=== PATIENT | female | born 1990 | race Caucasian/White ===

== ENCOUNTER → 2024-07-08 | Outpatient (BNVA) | payer BC, SELFPAY | END | disposition home or self-care (01) | PROVIDERS: PCP Internal Medicine; Referring Provider Internal Medicine; Visit Provider Urology | DX: G89.4 Chronic pain syndrome (principal); R39.198 Other difficulties with micturition; Z87.440 Personal history of urinary (tract) infections; F41.9 Anxiety disorder, unspecified; F32.A Depression, unspecified; E66.9 Obesity, unspecified; Z68.31 Body mass index [BMI] 31.0-31.9, adult | CPT/HCPCS: 81003; 99202; G0463 ==

== ENCOUNTER 2024-07-28 06:25 | Day surgery (SDC) | payer BC, SELFPAY ==
[2024-07-27 09:33] VITALS: BMI 31.1
--- NOTE | 2024-07-27 09:59 | EKG_ITS ---
[facility] Test Date: 2024-07-27 Pat Name: EUSEBIO JUAREZ Department: Room: - Gender: Female Route Specialist: HORTENCIA : 1990 Requested By: Christophe Armas Order Number: [id number] Reading MD: Christophe Armas Measurements Intervals [place] Rate: 67 P: 51 MD: 169 QRS: 49 QRSD: 96 T: 33 QT: 390 QTc: 414 Interpretive Statements SINUS RHYTHM WITH SINUS ARRHYTHMIA No previous ECG available for comparison /store/S0/[id number].pdf
[2024-07-27 10:46] LABS: HCG Qualitative,Urine Negative
[2024-07-27 10:54] LABS: Alanine Aminotransferase 21 U/L (10-49); Albumin, Serum 4.3 gm/dL (3.5-5.0); Albumin/Globulin Ratio 1.7 (1.2-2.2); Alkaline Phosphatase 84 U/L (46-116); Anion Gap 9 (7-16); Aspartate Amino Transferase 20 U/L (0-34); BUN/Creatinine Ratio 11 Ratio (12-20); Bilirubin,Total 0.5 mg/dL (0.3-1.2); Blood Urea Nitrogen 9 mg/dL (9-23); Calcium 8.4 mg/dL (8.3-10.6); Calcium (Corrected) 8.4 mg/dL (8.5-10.1); Carbon Dioxide 26.3 mMol/L (20.0-31.0); Chloride 106 mMol/L (98-107); Creatinine (Component) 0.8 mg/dL (0.6-1.3); Estimated Creatinine Clearance 109.4 mL/min (>60); Globulin 2.6 gm/dL (2.3-3.5); Glucose 95 mg/dL (74-106); Osmolality,Calculated 279 (275-295); Potassium 3.6 mMol/L (3.4-5.1); Sodium 141 mMol/L (136-145); Total Protein 6.9 gm/dL (5.7-8.2); eGFR > 60 See Note
--- NOTE | 2024-07-27 14:18 | SUR.PREOP ---
Hystory of syncopy reviewed with Dr Armas. 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
[2024-07-28] VITALS (8 sets, daily range): BP systolic 92–123; BP diastolic 45–77; PULSE 80–118; RESP 12–20; TEMP 36.4–36.7; O2SAT 97–100; BMI 31.5
--- NOTE | 2024-07-28 07:25 | CHAP ---
Patient was with family member. I gave some words of encouragement and prayer.
[2024-07-28 07:54] LABS: COVID-19 Antigen (In-House) Negative (Negative)
[2024-07-28] MEDS: SCOPOLAMINE 1 MG TDSY TOP (08:09)
[2024-07-28] MEDS: RINGERS LACTATED 1000 ML 1,000 ML 20 ML IV (08:12)
--- NOTE | 2024-07-28 09:47 | SUR.PHASEI ---
0947: Pt. AAOx4, vitals stable, breathing unlabored, no complaint of pain or nausea, duran catheter in place, draining clear yellow urine, report received from Eliecer RAYMUNDO, MD Stephens, and Shay AVILES.
--- NOTE | 2024-07-28 09:51 | ESOP_ITS ---
Date of Procedure 07/28/24 Pre Op Diagnosis Chronic pelvic pain syndrome, difficulty in urinating Post Op Diagnosis Same plus urethral stenosis plus bladder neck polyps, changes of cystitis biopsy was obtained fulguration is carried out Procedure Cystoscopic examination urethral dilation Thiells dilation for diagnostic and therapeutic purposes biopsy and fulguration Findings Urethral stenosis, changes of cystitis pending pathology, bladder neck polyps Procedure Description Indication for procedure this is a 34-year-old female she has multiple medical problem. She presented with the chronic pelvic pain syndrome difficulty in urinating she was recommended above procedure procedure and complications were discussed with the patient in great detail informed consent is obtained Patient was brought to the operating room in satisfactory condition after appropriate premedication she was appropriately identified by surgeon and operating room staff site scope and indications of the procedure were reconfirmed with the patient The patient received 160 mg Gentamicin IM pre-op prophylaxis. Informed consent was obtained for the procedure. General anesthesia was given uneventfully patient was the position in the dorsolithotomy position the patient was prepped in a sterile manner. Local anesthetic was placed in the urethra. Cystoscopy was then performed. The urethra had bladder neck polyp. Examination of the bladder revealed no evidence of cancerous lesions, papillary or polyp type, lesions or stones, next bladder was filled with 350 cc of water drained cystoscope was done again there were changes of cystitis biopsy was obtained fulguration was carried out to rule out interstitial cystitis. Both ureters were putting out clear urine. The urethra had mid urethral stenosis and the urethra was dilated up to 30Fr with dilators. The bladder was completely drained and the scope was removed. The patient tolerated the procedure well. Post-op instructions were given. The patient is to call the office should any problems occur. Patient disposition follow-up appointment in urology office is given Anesthesia GETA Pathology / specimen Other (Bladder biopsy) Estimated Blood Loss 0.5 Condition Stable Disposition PACU Surgeon Melanie Black MD Surgical Staff Operation Date: 07/28/24 08:30 Case Staff Anesthesiologist: Hayden Stephens
--- NOTE | 2024-07-28 10:47 | SUR.PHASEII ---
1047: Pt. AAOx4, vitals stable, breathing unlabored, no complaint of pain or nausea, duran catheter removed, pt. voided in restroom after duran catheter removal, pt. tolerated sips of water well, pt. ambulated to wheelchair with steady gait and no assist, no complications. Gave discharge instructions to the pt. and her ride, both verbalized understanding and had no further questions. Pt. left with all personal belongings.
== END 2024-07-28 10:47 | disposition home or self-care (01) ==
PROVIDERS: Anesthesiology; PCP Internal Medicine; Referring Provider Urology; Visit Provider Urology
PROC: 0T5B8ZZ Destruction of Bladder, Via Natural or Artificial Opening Endoscopic (ICD-10-PCS; CPT 52224; 2024-07-28 08:30)
DX: N30.90 Cystitis, unspecified without hematuria (principal); G89.4 Chronic pain syndrome; Z01.810 Encounter for preprocedural cardiovascular examination
CPT/HCPCS: 52224; 36415; 80053; 81025; 87811; 93005; A4217; A4649; C1894; J0131; J1100; J2250; J2405; J2704; J2765; J3010; J3490; J7120; A9270; J1596

== ENCOUNTER → 2025-01-07 | Outpatient (BNVA) | payer BC, OTHER, SELFPAY | END | disposition home or self-care (01) | PROVIDERS: PCP Internal Medicine; Referring Provider Internal Medicine; Visit Provider Urology | DX: N30.10 Interstitial cystitis (chronic) without hematuria (principal); F41.9 Anxiety disorder, unspecified; M79.10 Myalgia, unspecified site; F32.A Depression, unspecified; D50.9 Iron deficiency anemia, unspecified; G58.9 Mononeuropathy, unspecified; Z87.440 Personal history of urinary (tract) infections | CPT/HCPCS: 81003; 99212; G0463 ==